=== PATIENT | male | born 1945 | race Caucasian/White ===

== ENCOUNTER → 2020-02-26 14:01 | Outpatient (CLI) | payer MEDICARE, SELFPAY ==
--- NOTE | 2020-02-26 | DI.MRI.S_ITS ---
PROCEDURE: MR PELIS WO/W CON INDICATIONS: Malignant neoplasm of prostate TECHNIQUE: Coronal HASTE, axial T1 FSE with fat saturation, 3-plane nonbreath-hold T2 FSE. After the administration of contrast, dynamic axial, delayed axial and coronal VIBE or 2-D FLASH with fat saturation through the pelvis. Optional diffusion weighted imaging and ADC may be performed. COMPARISON: None. FINDINGS: Image quality: There is mild motion on the T2 small [id number] sequences. Diffusion weighted and dynamic contrast enhanced images are diagnostic. Prostate: Gland size is 5.8 x 4.9 x 4.2 cm; ellipsoid gland volume is 62.1 mL. There is near obliteration of the peripheral zone secondary to heterogeneous transitional zone hypertrophy. Prostate CA is commonly multifocal. Report up to 4 findings with PI-RADS assessment, and identify the index (dominant) lesion with the highest PI-RADS value. If 2 or more lesions share highest PI-RADS, index lesion should be the one demonstrating extra-prostatic extension (EPE). If none have EPE, then go with the largest lesion. Lesion size(s): Lesion 1: 1.0 cm transversely, 1.0 cm in AP diameter, and 1.2 cm craniocaudal diameter. Lesion location(s) (sector): Lesion 1: Right posterior lateral peripheral zone/transitional zone at the gland base. Lesion description: Lesion 1: Vertically oriented ovoid lesion, partially encapsulated with the hypointense margin and is found at the margin of the peripheral and transitional zone. was difficult to identify secondary to mild motion artifact. T2 weighted imaging (T2WI) morphology score: Lesion 1: 2 Diffusion weighted imaging (DWI) morphology score: Lesion 1: 3 Dynamic contrast enhancement (DCE): Lesion 1: Absent Lesion PI-RADS score: Lesion 1: PI-RADS 2/3 Genitourinary system: Bladder wall thickness is normal. Distal ureters are non distended. Bowel and peritoneum: No pathologic free pelvic fluid. Inferior colon and small bowel loops are normal in caliber. Nodes and vessels: No pelvic or inguinal adenopathy by size criteria. Iliac vessels are normal in caliber. Soft tissues: Tiny fat-containing right inguinal hernia. Bones: Marrow demonstrates normal overall signal, without lesions to suggest metastases. Degenerative changes in the right superior acetabulum. IMPRESSION: 1. There is a focal 1.2 cm nodule in the posterior lateral right transitional/peripheral zone. Encapsulation suggest most likely an extruded nodule of BPH although demonstrates features of diffusion weighted hyperintensity. 2. There is heterogeneous hypertrophy of the transitional zone and enlargement of the gland otherwise consistent with BPH. Dictated by: Sosa Austin M.D. on 02/27/2020 at 11:05 Approved by: Sosa Austin M.D. on 02/27/2020 at 11:33
== END ==
PROVIDERS: Referring Provider Specialist; Visit Provider Specialist
DX: C61 Malignant neoplasm of prostate (principal)
CPT/HCPCS: 72197; A9579